=== PATIENT | female | born 1980 | race Hispanic/Latino ===

== ENCOUNTER 2024-05-17 01:29 | Emergency (ER) | payer MEDICAID ==
[~2024-05-17] VITALS: Ht 175.3 cm; Wt 117.9 kg
[2024-05-17] MEDS ORDERED: AMOX1TAB16 PO (02:25)
--- NOTE | 2024-05-17 02:25 | ERN ---
General Chief Complaint: FOOT INJURY/PAIN Stated Complaint: FOOT INJURY Time Seen by MD: 01:39 Time Seen by Midlevel: 01:39 Source: patient History of Present Illness Initial Comments The patient is a 43-year-old female presenting to the emergency department for evaluation of right foot pain. Patient states she felt a pain to the right plantar region after working outside barefooted. She believes she may have stepped on a nail. Incident occurred yesterday. Allergies: Coded Allergies: No Known Allergies (Unverified Allergy, Unknown, 05/17/24) Home Meds Active Scripts Amoxicillin/Potassium Clav (Amox Tr-K Clv 875-125 mg Tab) 875 Mg-125 Mg Tablet, 1 EACH PO BID for 5 Days, #10 TAB 0 Refills Prov:JESSICA BELL 05/17/24 Past Medical History Past Medical History: Diabetes-Type II, Hypertension Past Surgical History: None ROS Dictation CONSTITUTIONAL: Negative except for HPI HEAD/FACE: Negative except for HPI EENT: Negative except for HPI RESPIRATORY: Negative except for HPI GASTROINTESTINAL/ABDOMINAL: Negative except for HPI GENITOURINARY: Negative except for HPI MUSCULOSKELETAL: Negative except for HPI INTEGUMENTARY: Negative except for HPI NEUROLOGICAL/PSYCH: Negative except for HPI HEMATOLOGIC/LYMPHATIC: Negative except for HPI All Systems Negative, Except as noted above. 13 point review of systems assessed and all negative except for above. Physical Exam Physical Exam Dictation Vital Signs reviewed General Appearance: Alert, oriented x 3, no acute distress, well developed, nourished. Head and Face: non-traumatic. Eyes: PERRL, pink conjunctivas, eyelid no trauma, anterior chamber with arcus senilis. Ears: Pinnas intact and no signs of trauma or erythema ear canals clear and no discharge TM no erythema Nose: No discharge, no bleeding. Oropharynx: Mouth normal, tongue pink, pharynx clear,no erythema, tonsils no exudates, no abscesses noted, mucous membrane moist Neck: Supple, non-tender, no thyromegaly, no masses, no JVD, no bruits Breast:Deferred Chest:No tenderness, no crepitus, no paradoxical movement, no retractions Lungs:Clear, well-ventilated, symmetric, no rales, no wheezing, no rhonchi, no stridor, good breath sounds bilaterally Heart: Regular rate, regular rhythm, no murmur, no gallops Vascular: no peripheral edema, Abdomen: Soft, positive bowel sounds, nondistended, no guarding, nontender, no rebound, no masses no hepatomegaly, no splenomegaly, no Mcdaniel's sign, no hernias. Rectal: Deferred Genital: Deferred Neurological: Normal speech, motor function intact, sensory function intact Musculoskeletal: Neck nontender, full range of motion, back nontender, full range of motion, Extremities: nontender, full range of motion Skin: Color pink, dry, no turgor, no rash, no lacerations, no abrasions, no contusions. Lymphatic: Deferred MDM MDM: The patient is a 43-year-old female presenting to the emergency department for evaluation of right foot pain. Patient states she felt a pain to the right plantar region after working outside barefooted. She believes she may have stepped on a nail. Incident occurred yesterday. On physical examination there is a puncture wound that appears to have closed in healed to the right plantar aspect of the foot. Patient states she is not up-to-date with the tetanus vaccination so a tetanus vaccination was administered. The patient was discharged home with Augmentin. Differential diagnosis: Wound, cellulitis, abscess There are no social concerns with this patient. Prescription drug management Prescriptions will include: Amoxicillin Medical management and examination interpretation discussions were had by me with other qualified healthcare professionals as indicated for the patient's care. ED Course Orders Procedure Category Date Status Time Tetanus,Diphtheria PHA 05/17/24 Complete Tox [Adult] (Diphther 02:30 Vital Signs Date Time Temp Pulse Resp B/P (MAP) Pulse Ox O2 Delivery O2 Flow Rate FiO2 05/17/24 03:11 97.7 73 18 147/77 99 Room Air* 0 21 05/17/24 01:33 97.5 69 19 152/78 98 Room Air DX & DISP Disposition: Discharge Departure Impression: Primary Impression: Puncture wound of right foot Condition: Stable Scripts Amoxicillin/Potassium Clav (Amox Tr-K Clv 875-125 mg Tab) 875 Mg-125 Mg Tablet 1 EACH PO BID for 5 Days, #10 TAB 0 Refills Prov: JESSICA BELL 05/17/24 Referrals: SELF,REFERRAL (PCP) Time of Disposition: 02:24 I have reviewed the case, and I agree with, Diagnosis and Plan I performed the substantive portion of the visit. I have reviewed and personally made and approve the management plan that is documented in the note by myself or the KENDRICK. I acknowledge for responsibility for the patient's management plan. JESSICA BELL May 17, 2024 02:25
[2024-05-17 03:11] VITALS: BP 147/77; PULSE 73; RESP 18; TEMP 97.7; O2SAT 99
[2024-05-17] MEDS: teTANUS/diphthERIA TOXOID [ADULT] 0.5 ML VIAL IM ONE (03:12)
== END 2024-05-17 03:27 | disposition home or self-care (01) ==
LOC: EDH 01:29
DX: S91.331A Puncture wound without foreign body, right foot, initial encounter (principal); E11.9 Type 2 diabetes mellitus without complications; I10 Essential (primary) hypertension; X58.XXXA Exposure to other specified factors, initial encounter; Y93.89 Activity, other specified; Y92.89 Other specified places as the place of occurrence of the external cause; Y99.8 Other external cause status
CPT/HCPCS: 90471; 90714; 99283

== ENCOUNTER 2024-06-03 22:16 | Emergency (ER) | payer MEDICAID ==
[~2024-06-03] VITALS: Ht 175.3 cm; Wt 121.6 kg
[~2024-06-03 22:16] MED LIST: AMOX1TAB16 PO
--- NOTE | 2024-06-03 22:52 | ERN ---
General Chief Complaint: Finger Injury Stated Complaint: C/O PAIN TO LEFT RING FINGER, CAUGHT IN CAR DOOR Time Seen by MD: 22:21 Time Seen by Midlevel: 22:21 Source: patient History of Present Illness Initial Comments Patient is a 44-year-old female with no significant past medical history presenting to the emergency department for evaluation of left ring finger pain. Patient states the finger was caught on her door. She was able to move with the finger but wanted to rule out a fracture. No other symptoms reported. Allergies: Coded Allergies: No Known Allergies (Unverified Allergy, Unknown, 05/17/24) Home Meds Active Scripts Amoxicillin/Potassium Clav (Amox Tr-K Clv 875-125 mg Tab) 875 Mg-125 Mg Tablet, 1 EACH PO BID for 5 Days, #10 TAB 0 Refills Prov:JESSICA BELL 05/17/24 Past Medical History Past Medical History: Diabetes-Type II Past Surgical History: None ROS Dictation CONSTITUTIONAL: Negative except for HPI HEAD/FACE: Negative except for HPI EENT: Negative except for HPI RESPIRATORY: Negative except for HPI GASTROINTESTINAL/ABDOMINAL: Negative except for HPI GENITOURINARY: Negative except for HPI MUSCULOSKELETAL: Negative except for HPI INTEGUMENTARY: Negative except for HPI NEUROLOGICAL/PSYCH: Negative except for HPI HEMATOLOGIC/LYMPHATIC: Negative except for HPI All Systems Negative, Except as noted above. 13 point review of systems assessed and all negative except for above. Physical Exam Physical Exam Dictation PHYSICAL EXAM: GENERAL: alert,, awake oriented x 3 HEENT: EOMI, Sclera non icteric, moist mucosa NECK: Supple, no JVD, trachea midline LUNGS: Clear breath sounds bilaterally. No wheezes HEART: Regular rate and rhythm. Normal S1 and S2, without murmurs ABD: Abdomen soft, nontender. Bowel sounds present EXT: Tenderness over the distal left 4th digit, full range motion, normal capillary refill, sensation intact NEURO: Alert and oriented to person, follows commands MDM MDM: Differential diagnosis: Fracture, contusion, dislocation There are no social concerns with this patient. Prescription drug management Prescriptions will include: None Medical management and examination interpretation discussions were had by me with other qualified healthcare professionals as indicated for the patient's care. ED Course Orders Procedure Category Date Status Time Finger(S) 2+Vws Lt RAD 06/03/24 Resulted 22:24 Vital Signs Date Time Temp Pulse Resp B/P (MAP) Pulse Ox O2 Delivery O2 Flow Rate FiO2 06/03/24 22:57 98.6 66 20 124/88 100 Room Air* 0 21 06/03/24 22:18 97.7 78 20 138/66 97 Room Air [facility] [address] [place] [address] IMAGING REPORT Signed PATIENT: SOWMYA MADSEN MR#: [id number] : 1980 SEX: F AGE: 44 LOCATION: [facility] ORDER 24 STATUS: [facility] REPORT#: [id number] SERVICE 23 REASON: r/o fx left 4th digit ORDERING PHYSICIAN: JESSICA BELL PROCEDURE: FINGER LT - FINGER(S) 2+VWS LT FINGER(S) 2+VWS LT HISTORY: Fracture to left fourth digit COMPARISON: None TECHNIQUE: 3 images of left fourth finger were obtained. FINDINGS: There is no acute displaced fracture or dislocation. Mild degenerative changes are seen. IMPRESSION: 1. Findings as described above. DICTATED BY: JUANIS PAULINO MD DATE: 06/04/24100 ELECTRONICALLY SIGNED BY: JUANIS PAULINO MD DATE: 06/04/24103 DX & DISP Disposition: Discharge Departure Impression: Primary Impression: Contusion of left ring finger Condition: Stable Additional Instructions: Your x-ray of the your left finger does not show any acute fracture. Referrals: CORRINA SCHULTZ DO (PCP) I have reviewed the case, and I agree with, Diagnosis and Plan I performed the substantive portion of the visit. I have reviewed and personally made and approve the management plan that is documented in the note by myself or the KENDRICK. I acknowledge for responsibility for the patient's management plan. JESSICA BELL Jun 03, 2024 22:52
[2024-06-03 22:57] VITALS: BP 124/88; PULSE 66; RESP 20; TEMP 98.6; O2SAT 100
--- NOTE | 2024-06-04 01:04 | HMCIMG ---
FINGER(S) 2+VWS LT HISTORY: Fracture to left fourth digit COMPARISON: None TECHNIQUE: 3 images of left fourth finger were obtained. FINDINGS: There is no acute displaced fracture or dislocation. Mild degenerative changes are seen. IMPRESSION: 1. Findings as described above.
== END 2024-06-03 23:00 | disposition home or self-care (01) ==
LOC: EDH 22:16
DX: S60.042A Contusion of left ring finger without damage to nail, initial encounter (principal); E11.9 Type 2 diabetes mellitus without complications; Z79.899 Other long term (current) drug therapy; W23.1XXA Caught, crushed, jammed, or pinched between stationary objects, initial encounter; Y93.89 Activity, other specified; Y92.89 Other specified places as the place of occurrence of the external cause; Y99.8 Other external cause status
CPT/HCPCS: 73140; 99283

== ENCOUNTER 2024-10-14 23:51 | Emergency (ER) | payer MEDICAID ==
[~2024-10-14] VITALS: Ht 175.3 cm; Wt 125.6 kg
[2024-10-15 00:35] LABS: RAPID GROUP A STREP negative (NEGATIVE)
[2024-10-15 00:35] LABS: IMMATURE GRANULOCYTE ABSOLUTE 0.07 K/uL (0-1); NUCLEATED RED BLOOD CELLS 0.0 % (0.0-0.19); PLATELET COUNT (AUTO) 199 K/uL (130-400); RED BLOOD CELL COUNT(AUTO) 4.41 MIL/uL (4.00-5.50); RED CELL DISTRIBUTION WIDTH 13.2 % (11.0-15.5); WHITE BLOOD COUNT (AUTO) 9.9 K/uL (4.8-10.8)
[2024-10-15 00:37] LABS: CREATININE 0.6 mg/dL (0.5-1.0); GLOMERULAR FILTR. RATE CALC 114.0 mL/min (>90); GLUCOSE,RANDOM 139.0 mg/dL (70-105); SODIUM SERUM 137.0 mmol/L (136-145); UREA NITROGEN, BLOOD 9.0 mg/dL (7-18)
[2024-10-15 00:45] LABS: INFLUENZA TYPE A Negative For Type A (NEGATIVE); INFLUENZA TYPE B Negative For Type B (NEGATIVE)
[2024-10-15 00:51] LABS: SARS-CoV-2, RNA, NAAT POSITIVE SARS CoV-2 (NEGATIVE)
--- NOTE | 2024-10-15 01:00 | ERN ---
General Chief Complaint: Cough Stated Complaint: C/O COUGH, BODYACHE, SORE THROAT, CONGESTION,PHLEG Time Seen by MD: 00:12 Source: patient History of Present Illness Initial Comments 44-year-old female with a two day history of productive cough and a headache. Timing/Duration: 24 hours Allergies: Coded Allergies: No Known Allergies (Unverified Allergy, Unknown, 05/17/24) Home Meds Active Scripts Amoxicillin/Potassium Clav (Amox Tr-K Clv 875-125 mg Tab) 875 Mg-125 Mg Tablet, 1 EACH PO BID for 5 Days, #10 TAB 0 Refills Prov:JESSICA BELL 05/17/24 Past Medical History Past Medical History: Diabetes-Type II, High Cholesterol Past Surgical History: Female( History) LMP: Oct 12, 2024 Constitutional: (+) fever Respiratory: (+) cough Cardiovascular: (-) chest pain, (-) edema, (-) palpitations, (-) syncope, (-) dyspnea on exertion, (-) other documentation Gastrointestinal/Abdominal: (+) nausea Genitourinary: (-) vaginal discharge, (-) vaginal bleeding, (-) dysuria, (-) frequency, (-) hematuria, (-) pain, (-) other documentation Musculoskeletal: (-) Neck pain, (-) back pain, (-) Flank Pain, (-) joint pain, (-) joint swelling, (-) muscle pain, (-) muscle stiffness, (-) gout, (-) other documentation Physical Exam General Appearance: (+) moderate distress Orientation: (+) alert, (+) oriented x 3 Head/Face Trauma: No Eye: bilateral eye normal inspection, bilateral eye PERRL, bilateral eye EOMI Ear, Nose, Throat: (+) hearing grossly normal, (+) normal ENT inspection Neck: (+) normal inspection, (+) supple Respiratory: (+) chest non-tender, (+) decreased breath sounds Heart: (+) regular Vascular: (+) no edema, (+) normal peripheral pulse Gastrointestinal: (+) soft, (+) bowel sound present Results Laboratory and Microbiology Lab and Micro Result Laboratory Tests Test 10/15/24 00:01 10/15/24 00:24 Influenza Type A Antigen Negative For Type A Influenza Type B Antigen Negative For Type B SARS-CoV-2, RNA, NAAT POSITIVE SARS CoV-2 Group A Streptococcus Rapid negative (NEGATIVE) White Blood Count 9.9 K/uL (4.8-10.8) Red Blood Count 4.41 MIL/uL (4.00-5.50) Hemoglobin 12.7 g/dL (12.0-16.0) Hematocrit 39.0 % (36-48) Mean Corpuscular Volume 88.4 fL (79-99) Mean Corpuscular Hemoglobin 28.8 pg (27.0-33.0) Mean Corpuscular Hemoglobin Concent 32.6 g/dL (32.0-36.0) Red Cell Distribution Width 13.2 % (11.0-15.5) Platelet Count 199 K/uL (130-400) Mean Platelet Volume 11.8 fL (7.5-10.5) H Immature Granulocyte % (Auto) 0.7 % (0-1) Neutrophils (%) (Auto) 76.6 % (40.0-77.0) Lymphocytes (%) (Auto) 13.9 % (21.0-51.0) L Monocytes (%) (Auto) 7.2 % (3.0-13.0) Eosinophils (%) (Auto) 1.2 % (0.0-8.0) Basophils (%) (Auto) 0.4 % (0.0-5.0) Neutrophils # (Auto) 7.6 K/uL (1.8-7.7) Lymphocytes # (Auto) 1.4 K/uL (1.0-4.8) Monocytes # (Auto) 0.7 K/uL (0.1-1.0) Eosinophils # (Auto) 0.12 K/uL (0.00-0.70) Basophils # (Auto) 0.04 K/uL (0.00-0.20) Absolute Immature Granulocyte (auto 0.07 K/uL (0-1) Nucleated Red Blood Cells 0.0 % (0.0-0.19) Sodium Level 137 mmol/L (136-145) Potassium Level 3.6 mmol/L (3.5-5.1) Chloride Level 100 mmol/L (101-111) L Carbon Dioxide Level 29 mmol/L (21-32) Blood Urea Nitrogen 9 mg/dL (7-18) Creatinine 0.6 mg/dL (0.5-1.0) Glomerular Filtration Rate Calc 114 mL/min (>90) Random Glucose 139 mg/dL (70-105) H Total Calcium 8.4 mg/dL (8.5-10.1) L Serum Test, Qualitative NEGATIVE (NEGATIVE) MDM Patient has all the hallmarks of an upper respiratory tract infection including productive sputum, fever, sore throat and slight nausea. She has diminished breath sounds bilaterally. I will give her some dexamethasone obtain a chest x-ray and do nasal swabs. Patient is positive for COVID. The dexamethasone has helped her breathing a little bit. Chest x-ray may or may not show an infiltrate. I will discharge her with a Z-Evan and also Paxlovid ED Course Orders Procedure Category Date Status Time Covid Rna Naat LAB 10/15/24 Complete 00:03 Influenza Type A & B, LAB 10/15/24 Complete Rapid 00:03 Rapid (Group A Strep) LAB 10/15/24 Complete 00:03 Dexamethasone 4 Mg PHA 10/15/24 In Process Tab (Decadron 4 Mg Ta 00:30 Lactated Ringers PHA 10/15/24 Complete 1000ml (Lactated 00:13 Chest 1vw RAD 10/15/24 Taken 00:13 Cbc With Differential LAB 10/15/24 Complete 00:13 Basic Metabolic Panel LAB 10/15/24 Complete 00:13 Testing, LAB 10/15/24 Complete Serum Hcg 02:25 Current Medications Medications (Trade) Dose Ordered Sig/Roland Route PRN Reason Start Time Stop Time Status Last Admin Dose Admin Dexamethasone (DeCADron 4 mg TAB) 4 mg ONCE PO 10/15/24 00:30 11/14/24 00:29 10/15/24 01:49 Lactated Ringer's (Lactated Ringers 1000ml) 1,000 ml BOLUS STAT IV 10/15/24 00:13 10/15/24 00:17 DC 10/15/24 01:50 Vital Signs Date Time Temp Pulse Resp B/P (MAP) Pulse Ox O2 Delivery O2 Flow Rate FiO2 10/15/24 02:06 99.7 88 20 135/64 98 Room Air* 0 21 10/14/24 23:52 98.2 84 20 145/70 97 Room Air DX & DISP Disposition: Discharge Departure Impression: Primary Impression: COVID Condition: Stable Scripts Azithromycin (Azithromycin) 500 Mg Tablet 1 TAB PO DAILY for 5 Days, #5 TAB 0 Refills Prov: SHWETA RODRIGUEZ MD 10/15/24 Nirmatrelvir/Ritonavir (Paxlovid 300-100 mg Dose Pack) 300 Mg (150 Mg X 2)-100 Mg Tab.ds.pk 1 EACH PO BID, #15 TAB Prov: SHWETA RODRIGUEZ MD 10/15/24 Additional Instructions: You have COVID. I have given you some Paxlovid to help with that infection and also some azithromycin to help with a community-acquired pneumonia. I have giv en you fluid and dexamethasone for symptom relief. Please return to the emergency room if your symptoms do not improve over the next several days. Or if you have trouble breathing. For sinus pain and tenderness I recommend Sudafed it will help drain the sinuses and decrease the pressure and pain. Drink plenty of fluids to help your lungs mobilize any secretions. Drink enough fluids so that your urine turns clear at least once a day. Referrals: CORRINA SCHULTZ DO (PCP) SHWETA RODRIGUEZ MD Oct 15, 2024 01:00
[2024-10-15] MEDS: LACTATED RINGERS 1000ML IV STA (01:50)
--- NOTE | 2024-10-15 02:05 | NUR ---
ASSUMED PT CARE
[2024-10-15] MEDS ORDERED: NIRM1TAB12 PO (03:19)
[2024-10-15] MEDS ORDERED: AZIT500T4 PO (03:19)
[2024-10-15 03:38] VITALS: BP 125/62; PULSE 85; RESP 20; TEMP 99.5; O2SAT 97
--- NOTE | 2024-10-15 03:44 | HMCIMG ---
EXAM: CR Chest, 1 view CLINICAL HISTORY: Phlegm COMPARISON: None provided. FINDINGS: Mild bibasilar atelectasis. The lungs show no infiltrates or other acute findings. No pleural effusion or pneumothorax. The cardiomediastinal silhouette is within normal limits. No acute osseous abnormality. Mild right diaphragmatic eventration. IMPRESSION: No acute cardiopulmonary process is evident. Mild bibasilar atelectasis. Mild right diaphragmatic eventration. /[place]
== END 2024-10-15 03:40 | disposition home or self-care (01) ==
LOC: EDH 23:51
DX: U07.1 COVID-19 (principal); E11.9 Type 2 diabetes mellitus without complications; E78.00 Pure hypercholesterolemia, unspecified
CPT/HCPCS: 99284; 96360; 87635; 80048; 84703; 85025; 87880; 87804 ×2; 36415; 71045; J7120; J8540; 99283

== ENCOUNTER 2024-10-20 12:55 | Emergency (ER) | payer MEDICAID ==
[~2024-10-20] VITALS: Ht 175.3 cm; Wt 122.5 kg
[~2024-10-20 12:55] MED LIST changes: +AZIT500T4 PO; +NIRM1TAB12 PO
--- NOTE | 2024-10-20 13:05 | EKG ---
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
[2024-10-20] MEDS ORDERED: CODE473S6 PO (13:54)
--- NOTE | 2024-10-20 13:55 | ERN ---
General Chief Complaint: Flu Symptoms Stated Complaint: FLULIKE SYMPTOMS Time Seen by MD: 12:59 History of Present Illness Initial Comments 44-year-old female otherwise healthy presents for cough congestion rhinorrhea. Patient reports she had COVID about a week ago, she was diagnosed at this facility. She took a course of Paxlovid and azithromycin. She reports that she still has a some cough and congestion. No longer febrile. No vomiting or diarrhea. Mild sore throat. Allergies: Coded Allergies: No Known Allergies (Unverified Allergy, Unknown, 05/17/24) amoxicillin (Unverified Allergy, Unknown, 10/15/24) Home Meds Active Scripts Azithromycin (Azithromycin) 500 Mg Tablet, 1 TAB PO DAILY for 5 Days, #5 TAB 0 Refills Prov:SHWETA RODRIGUEZ MD 10/15/24 Nirmatrelvir/Ritonavir (Paxlovid 300-100 mg Dose Pack) 300 Mg (150 Mg X 2)-100 Mg Tab.ds.pk, 1 EACH PO BID, #15 TAB Prov:SHWETA RODRIGUEZ MD 10/15/24 Amoxicillin/Potassium Clav (Amox Tr-K Clv 875-125 mg Tab) 875 Mg-125 Mg Tablet, 1 EACH PO BID for 5 Days, #10 TAB 0 Refills Prov:JESSICA BELL 05/17/24 Past Medical History Past Medical History: Diabetes-Type II, High Cholesterol Past Surgical History: Female( History) LMP: Oct 13, 2024 ROS Dictation CONSTITUTIONAL: No chills, no fever, no weakness, no diaphoresis, no malaise. HEAD/FACE: No signs of trauma. EENT: No eye pain, no blurred vision, no tearing, no double vision, no ear pain, no ear discharge, no nose pain, no nasal congestion, no throat pain, no throat swelling, no mouth pain. RESPIRATORY: Cough Chris patient and congestion CARDIOVASCULAR: No chest pain, no edema, no palpitations, no syncope. GASTROINTESTINAL/ABDOMINAL: No abdominal pain, no constipation, no diarrhea, no nausea, no vomiting. GENITOURINARY: No abnormal discharge, no dysuria, no frequent urination, no hematuria. No complaints of pain in the genitals. MUSCULOSKELETAL: No back pain, no gout, no joint pain, no joint swelling, no muscle pain, no muscle stiffness, no neck pain. INTEGUMENTARY: No change in color, no change in hair/nails, no dryness, no lesion, no lumps, no rash. NEUROLOGICAL/PSYCH: No anxiety, not depressed, no emotional problem, no headache, no numbness, no pre-existing deficit, no history of seizures, no tremors, no weakness. HEMATOLOGIC/LYMPHATIC: Not anemic, no history of blood clots, no apparent bleeding, no bruising, glands not swollen. All Systems Negative, Except as Noted. Physical Exam Physical Exam Dictation VITAL SIGNS: Reviewed. GENERAL APPEARANCE: Alert, oriented x3, no acute distress, obese. HEAD AND FACE: Non-traumatic. EYES: PERRL, pink conjunctivas, eyelid no trauma, anterior chamber clear. EARS: Pinnas intact and no signs of trauma or erythema. Ear canals clear and no discharge. TMs no erythema. NOSE: No discharge, no bleeding. OROPHARYNX: Mouth normal, teeth no caries, tongue pink. Pharynx clear, no erythema. Tonsils no exudates, no abscesses noted. Mucous membrane moist. NECK: Supple, non-tender, no thyromegaly, no masses, no JVD, no bruits. BREAST: Deferred. CHEST: No tenderness, no crepitus, no paradoxical movement, no retractions. LUNGS: Clear, well-ventilated, symmetric, no rales, no wheezing, no rhonchi, no stridor, good breath sounds bilaterally. HEART: Regular rate, regular rhythm, no murmur, no gallops. VASCULAR: No peripheral edema. ABDOMEN: Soft, positive bowel sounds, nondistended, no guarding, nontender, no rebound, no masses no hepatomegaly, no splenomegaly, no Mcdaniel's sign, no hernias. RECTAL: Deferred. GENITAL: Deferred. NEUROLOGICAL: Normal speech, gross motor function intact, gross sensory function intact. MUSCULOSKELETAL: Neck nontender, full range of motion, back nontender, full range of motion. EXTREMITIES: Nontender, full range of motion. SKIN: Color pink, dry, no turgor, no rash, no lacerations, no abrasions, no contusions. LYMPHATICS: Deferred. MDM CC: Cough congestion recent COVID diagnosis Historian: Patient Comorbidities: None Limitations by social determinants of health: None Differential diagnosis: Viral syndrome, post viral congestion, pneumonia Vital signs are stable Clinical exam is unremarkable. Clear lung sounds. No wheezing. No respiratory distress. ENT exam is normal other than mild congestion. Chest x-ray per my independent interpretation shows no cardiomegaly, pleural effusions or focal infiltrates. Patient already completed a course of Paxlovid and azithromycin. I do not see any signs of acute infection. Lung sounds are clear oxygen saturation is stable no respiratory distress. We will discharge with some cough congestion medication and recommend conservative management and PCP follow up as needed. ED Course Orders Procedure Category Date Status Time 12 Lead Ekg Tracing- EKG 10/20/24 Complete Technical 13:01 Chest 1vw RAD 10/20/24 Taken 13:08 Vital Signs Date Time Temp Pulse Resp B/P (MAP) Pulse Ox O2 Delivery O2 Flow Rate FiO2 10/20/24 12:57 98.2 75 20 113/83 96 Room Air DX & DISP Disposition: Discharge Departure Impression: Primary Impression: Post-viral cough syndrome Additional Impression: COVID Condition: Stable Scripts Promethazine HCl/Codeine (Promethazine-Codeine Syrup) 6.25 Mg-10 Mg/5 Ml Syrup 5 ML PO Q4HPRN PRN for cough, #120 ML 0 Refills Prov: JANEY NAM DO 10/20/24 Additional Instructions: Your symptoms are most consistent with a postviral cough. This requires time and will clear on its own. Your oxygen level is normal. Your lung sounds are clear. Your chest x-ray is clear. I have prescribed promethazine with codeine, which is a strong cough syrup. You can use this as night to help you sleep and reduce cough. Throughout the day you can take [id number] decongestants and cough medicine as needed. These medications are [id number]. Follow up with the primary doctor as needed. Referrals: CORRINA SCHULTZ DO (PCP) JANEY NAM DO Oct 20, 2024 13:55
[2024-10-20 14:01] VITALS: BP 132/74; PULSE 75; RESP 20; TEMP 98.5; O2SAT 98
--- NOTE | 2024-10-20 14:25 | HMCIMG ---
EXAM: CR Chest, 1 View. CLINICAL HISTORY: cough COMPARISON: None provided. FINDINGS: LUNGS: There is no mass, infiltrate, or acute pulmonary abnormality. PLEURAL SPACES: No pleural effusion or pneumothorax. MEDIASTINUM: Cardiac size and mediastinal contours within normal limits. BONES: No aggressive appearing osseous lesion seen. IMPRESSION: No acute cardiopulmonary pathology is evident. /[place]
== END 2024-10-20 14:01 | disposition home or self-care (01) ==
LOC: EDH 12:55
DX: U07.1 COVID-19 (principal); R05.9 Cough, unspecified; E11.9 Type 2 diabetes mellitus without complications; E78.00 Pure hypercholesterolemia, unspecified; Z88.0 Allergy status to penicillin; Z79.899 Other long term (current) drug therapy
CPT/HCPCS: 71045; 93005; 99283